=== PATIENT | female | born 1985 | race American Indian/Alaskan Native ===

== ENCOUNTER 2016-12-10 10:02 | Emergency (ER) | payer MEDICAID ==
[2016-12-10 10:34] LABS: Basophils % (Auto) 0.7 % (0.0-1.8); Hematocrit 37.9 % (30.3-42.9); Hemoglobin 12.7 gm/dl (10.1-14.3); Mean Corpuscular HGB Conc 33 % (30-34); Mean Corpuscular Hemoglobin 31 pg (28-32); Mean Corpuscular Volume 92 fl (79-97); Platelet Count 268 K/mm3 (140-440); Red Blood Count 4.13 M/mm3 (3.65-5.03); Red Cell Distribution Width 13.7 % (13.2-15.2); White Blood Count 10.3 K/mm3 (4.5-11.0)
[2016-12-10 10:37] LABS: Bilirubin,Urine NEG (Negative); Blood,Urine NEG (Negative); Ketones,Urine NEG (Negative); Leukocyte Esterase,Urine NEG (Negative); Mucus,Urine FEW /HPF; Nitrite,Urine NEG (Negative); Protein,Urine <15 mg/dL mg/dL (Negative); Urobilinogen,Urine < 2.0 mg/dL (<2.0)
[2016-12-10 10:45] LABS: Alanine Aminotransferase 18 units/L (7-56); Albumin 3.3 g/dL (3.9-5); Albumin/Globulin Ratio 0.9 %; Alkaline Phosphatase 67 units/L (35-129); Anion Gap 15 mmol/L; Bilirubin,Total 0.4 mg/dL (0.1-1.2); Blood Urea Nitrogen 4 mg/dL (7-17); Carbon Dioxide 23 mmol/L (22-30); Chloride 101.2 mmol/L (98-107); Glucose 88 mg/dL (65-100); Lipase 27 units/L (13-60); Potassium 3.8 mmol/L (3.6-5.0); Sodium 135 mmol/L (137-145); Total Protein 6.9 g/dL (6.3-8.2)
--- NOTE | 2016-12-10 14:19 | Ultrasound Report ---
ULTRASOUND OB LESS THAN 14 WEEKS - TRANSABDOMINAL AND TRANSVAGINAL INDICATION: Left-sided pelvic pain. COMPARISON: None similar at this institution. FINDINGS: Transabdominal and transvaginal pelvic sonography performed in this patient with LMP of 10/11/2016 and estimated menstrual age of 8 weeks and 4 days. It demonstrates an anteverted, gravid uterus estimated at 16.7 x 8.3 x 11 cm with a single, viable intrauterine gestation with heart rate of 161 beats per minute. Mean crown-rump length of 6.5 cm corresponds to 13 weeks and 0 days. Biparietal diameter of 1.9 cm and femur length of 1 cm correspond to 13 weeks and 0 days as well. Unremarkable included urinary bladder. Cervix appears closed and of adequate length with small intrinsic fluid. No significant pelvic free fluid. Both ovaries obscured/not visualized. CONCLUSION: 1. Single, live intrauterine gestation with an ultrasound estimated age of 13 weeks and 0 days and LENY of 06/17/2017. Please also correlate clinically for a little over 4 weeks discrepancy with the estimated menstrual age. 2. Ovaries not visualized. Thank you for the opportunity to participate in this patient's care.
--- NOTE | 2016-12-10 17:15 | Emergency Department Report ---
HPI - General Chief Complaint: Abdominal Pain Time Seen by Provider: 12/10/16 17:06 - HPI HPI: Room 17 The patient is a 31-year-old female presenting with a chief complaint of abdominal pain. The patient states for 3 days he's had pain and left lower quadrant. Patient states the pain has been intermittent. Patient denies any history of vaginal bleeding dysuria or hematuria. The patient states her last cycle occurred 10/11/2016. 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 and when she discussed with them they recommended she come to the ED for evaluation Location: [see above] Duration: [see above] Quality: Pain Severity: Moderate Modifying factors: [see above] Context: [see above] Mode of transportation: Unknown ED Past Medical Hx - Past Medical History Previous Medical History?: No - Surgical History Past Surgical History?: No - Family History Family history: no significant - Social History Smoking Status: Current Every Day Smoker (1/7 pack per day) Substance Use Type: Alcohol ED Review of Systems ROS: Stated complaint: ABDOMINAL PAIN Other details as noted in HPI Comment: All other systems reviewed and negative Constitutional: denies: chills, fever Eyes: denies: eye pain, eye discharge, vision change ENT: denies: ear pain, throat pain Respiratory: denies: cough, shortness of breath, wheezing Cardiovascular: denies: chest pain, palpitations Gastrointestinal: abdominal pain Genitourinary: abnormal menses Musculoskeletal: denies: back pain, joint swelling, arthralgia Skin: denies: rash, lesions Neurological: denies: headache, weakness, paresthesias Psychiatric: denies: anxiety, depression Hematological/Lymphatic: denies: easy bleeding, easy bruising Physical Exam - Physical Exam Vital Signs: Vital Signs 12/10/16 10:04 Temperature 98.6 F Pulse Rate 73 Respiratory 22 Rate Blood Pressure 131/80 O2 Sat by Pulse 100 Oximetry Physical Exam: GENERAL: The patient is well-developed well-nourished female lying on stretcher not appearing to be in acute distress. [] HEENT: Normocephalic. Atraumatic. Extraocular motions are intact. Patient has moist mucous membranes. NECK: Supple. Trachea midline CHEST/LUNGS: Clear to auscultation. There is no respiratory distress noted. HEART/CARDIOVASCULAR: Regular. There is no tachycardia. There is no gallop rub or murmur. ABDOMEN: Abdomen is soft, with mild left lower quadrant discomfort. There is no rebound or guarding. Patient has normal bowel sounds. There is no abdominal distention. SKIN: There is no rash. There is no edema. There is no diaphoresis. NEURO: The patient is awake, alert, and oriented. The patient is cooperative. The patient has normal speech MUSCULOSKELETAL: There is no evidence of acute injury. ED Course Vital Signs 12/10/16 10:04 Temperature 98.6 F Pulse Rate 73 Respiratory 22 Rate Blood Pressure 131/80 O2 Sat by Pulse 100 Oximetry ED Medical Decision Making - Lab Data Result diagrams: 12/10/16 10:16 12/10/16 10:16 Laboratory Tests 12/10/16 12/10/16 12/10/16 10:16 10:16 11:01 WBC 10.3 RBC 4.13 Hgb 12.7 Hct 37.9 MCV 92 MCH 31 MCHC 33 RDW 13.7 Plt Count 268 Lymph % (Auto) 23.9 Shelby % (Auto) 4.3 Eos % (Auto) 2.0 Baso % (Auto) 0.7 Lymph # 2.5 Shelby # 0.4 Eos # 0.2 Baso # 0.1 Seg Neutrophils % 69.1 Seg Neutrophils # 7.1 Sodium 135 L Carbon Dioxide 23 BUN 4 L Creatinine 0.5 L Estimated GFR > 60 BUN/Creatinine Ratio 8.00 Glucose 88 Calcium 9.0 Total Bilirubin 0.4 AST 34 ALT 18 Alkaline Phosphatase 67 Total Protein 6.9 Albumin 3.3 L Albumin/Globulin Ratio 0.9 Lipase 27 HCG, Quant 99430 H Urine Color Urine Turbidity Urine pH Ur Specific Dalton Urine Protein Urine Glucose (UA) Urine Ketones Urine Blood Urine Nitrite Urine Bilirubin Urine Urobilinogen Ur Leukocyte Esterase Urine WBC (Auto) Urine RBC (Auto) U Epithel Cells (Auto) Urine Mucus 12/10/16 Unknown WBC RBC Hgb Hct MCV MCH MCHC RDW Plt Count Lymph % (Auto) Shelby % (Auto) Eos % (Auto) Baso % (Auto) Lymph # Shelby # Eos # Baso # Seg Neutrophils % Seg Neutrophils # Sodium Carbon Dioxide BUN Creatinine Estimated GFR BUN/Creatinine Ratio Glucose Calcium Total Bilirubin AST ALT Alkaline Phosphatase Total Protein Albumin Albumin/Globulin Ratio Lipase HCG, Quant Urine Color Yellow Urine Turbidity Clear Urine pH 6.0 Ur Specific Dalton 1.012 Urine Protein <15 mg/dl Urine Glucose (UA) Neg Urine Ketones Neg Urine Blood Neg Urine Nitrite Neg Urine Bilirubin Neg Urine Urobilinogen < 2.0 Ur Leukocyte Esterase Neg Urine WBC (Auto) 2.0 Urine RBC (Auto) 3.0 U Epithel Cells (Auto) 10.0 Urine Mucus Few Potassium 3.8, chloride 101.2 - Radiology Data Radiology results: report reviewed (pelvic ultrasound), image reviewed (pelvic ultrasound) Pelvic ultrasound (read by radiologist)-single live intrauterine gestation with an ultrasound estimated age of 13 weeks and 0 days. - Differential Diagnosis , ectopic , UTI Critical care attestation.: If time is entered above; I have spent that time in minutes in the direct care of this critically ill patient, excluding procedure time. ED Disposition Clinical Impression: Disposition: DISCHARGED TO HOME OR SELFCARE Is pt being admited?: No Does the pt Need Aspirin: No Condition: Stable Instructions: (ED) Additional Instructions: Return to the emergency department immediately should you develop worsening symptoms, fever, inability to tolerate food or liquid or any other concerns. Referrals: PRIMARY CARE, [Primary Care Provider] - 3-5 Days your, BUILDING CONSTRUCTION SUPERVISOR [Other] - SETH Time of Disposition: 17:17
[2016-12-10 17:50] VITALS: BP 154/81
== END 2016-12-10 17:35 | disposition home or self-care (01) ==
LOC: ED 10:02
DX: O26.891 Other specified pregnancy related conditions, first trimester (principal); R10.32 Left lower quadrant pain; O99.330 Smoking (tobacco) complicating pregnancy, unspecified trimester; F17.200 Nicotine dependence, unspecified, uncomplicated; O02.81 Inappropriate change in quantitative human chorionic gonadotropin (hCG) in early pregnancy; Z3A.00 Weeks of gestation of pregnancy not specified
CPT/HCPCS: 36415; 76801; 76817; 80053; 81001; 83690; 84702; 85025; 99284

== ENCOUNTER 2017-06-04 14:34 | Outpatient (CLI) | payer MEDICAID ==
[2017-06-04 15:20] VITALS: BP 118/69
[2017-06-04 16:32] LABS: Basophils % (Auto) 0.4 % (0.0-1.8); Eosinophils % (Auto) 0.9 % (0.0-4.3); Hematocrit 33.4 % (30.3-42.9); Mean Corpuscular HGB Conc 33 % (30-34); Mean Corpuscular Hemoglobin 29 pg (28-32); Mean Corpuscular Volume 89 fl (79-97); Platelet Count 269 K/mm3 (140-440); Red Blood Count 3.74 M/mm3 (3.65-5.03); Red Cell Distribution Width 13.7 % (13.2-15.2); White Blood Count 11.5 K/mm3 (4.5-11.0)
[2017-06-04 16:42] LABS: INR 0.96 (0.87-1.13)
[2017-06-04 16:43] LABS: Partial Thromboplastin Time 26.9 Sec. (24.2-36.6)
--- NOTE | 2017-06-05 13:29 | Ultrasound Report ---
OB ULTRASOUND LIMITED: 06/04/17 CLINICAL: well being. Fall. FINDINGS: Gestation: Atkinson Position: Cephalic. Amniotic Fluid: Normal TRES = 14.5 cm Placenta: Posterior, fundal and left lateral. No placenta previa and no evidence of abruption. Placental Grade: 0 Heart Rate: 121 BPM IMPRESSION: Single live intrauterine fetus at 37 weeks, 5 days based on clinical dating. EDC based on clinical dating is 06/20/17. No placental abruption.
--- NOTE | 2017-06-05 13:30 | Ultrasound Report ---
BIOPHYSICAL PROFILE: 06/04/17 14:34:00 CLINICAL: Fall. Check Well Being FINDINGS: The biophysical profile was scored as followin - breathing movements 2 - movements 2 - posture and tone 2 - Qualitative amniotic fluid volume 6 - TOTAL SCORE OF POSSIBLE 8 Heart Rate (bpm) = 145 IMPRESSION: Abnormal study scored 6/8.
== END 2017-06-04 17:54 | disposition left against medical advice (07) ==
LOC: TRG 14:34 → LD 14:35 → TRG 17:54
PROVIDERS: ATTEND Obstetrics & Gynecology
DX: O99.333 Smoking (tobacco) complicating pregnancy, third trimester (principal); O47.1 False labor at or after 37 completed weeks of gestation; O26.893 Other specified pregnancy related conditions, third trimester; W19.XXXA Unspecified fall, initial encounter; Y93.89 Activity, other specified; Y92.89 Other specified places as the place of occurrence of the external cause; Y99.8 Other external cause status
CPT/HCPCS: 36415; 76815; 76819; 85025; 85379; 85610; 85730

== ENCOUNTER 2017-06-26 20:26 | Outpatient (CLI) | payer MEDICAID ==
[2017-06-26 20:42] LABS: Urine Drugs of Abuse Note Disclamer
[2017-06-26 20:53] LABS: Bacteria,Urine 3+ /HPF (Negative); Bilirubin,Urine NEG (Negative); Blood,Urine NEG (Negative); Ketones,Urine NEG (Negative); Leukocyte Esterase,Urine TR (Negative); Mucus,Urine FEW /HPF; Nitrite,Urine NEG (Negative); Protein,Urine <15 mg/dL mg/dL (Negative); Urobilinogen,Urine < 2.0 mg/dL (<2.0)
[2017-06-26 21:56] LABS: Basophils % (Auto) 0.4 % (0.0-1.8); Eosinophils % (Auto) 1.2 % (0.0-4.3); Hematocrit 33.2 % (30.3-42.9); Hemoglobin 11.4 gm/dl (10.1-14.3); Mean Corpuscular HGB Conc 34 % (30-34); Mean Corpuscular Hemoglobin 30 pg (28-32); Mean Corpuscular Volume 89 fl (79-97); Platelet Count 308 K/mm3 (140-440); Red Blood Count 3.74 M/mm3 (3.65-5.03); White Blood Count 12.2 K/mm3 (4.5-11.0)
[2017-06-26 22:59] LABS: HIV-1 Antigen p24 Non React (Non React); HIVR-1/2 Ab Non React (Non React)
--- NOTE | 2017-06-27 10:41 | Ultrasound Report ---
ULTRASOUND BIOPHYSICAL PROFILE: History: No care Technique: Transabdominal ultrasound with Doppler interrogation. 2 - breathing movements 2 - movements 2 - posture and tone 2 - Qualitative amniotic fluid volume 8 - TOTAL SCORE OF POSSIBLE 8 Heart Rate (bpm) 145
--- NOTE | 2017-06-28 08:12 | Ultrasound Report ---
OB ULTRASOUND GREATER THAN 14 WEEKS INDICATION: No care. COMPARISON: 06/04/2017 TECHNIQUE: Transabdominal grayscale ultrasound with Doppler interrogation. Gestation: Atkinson Position: Cephalic Amniotic Fluid: WNL (7-24 cm) TRES = 9.11 cm Placenta: Fundal Placental Grade: II Heart Rate: 145 BPM BPD: 9.7 cm = 39 w 4 d HC: 34.7 cm = 40 w 1 d AC: 36 cm = 40 w 0 d FL: 7.9 cm = 40 w 3 d HC/AC Ratio: 0.9 Estimated Weight: 3981 grams LMP: Uncertain US Gest. Age = 40 w 0 d EDC: 06/26/2017 CONCLUSION: Single, viable intrauterine gestation with ultrasound estimated age of 40 weeks and zero days and EDC of 06/26/2017, currently in cephalic lie with details, as above. Thank you for the opportunity to participate in this patient's care.
[2017-06-29 10:51] VITALS: BP 143/91
== END 2017-06-26 22:57 | disposition home or self-care (01) ==
LOC: TRG 20:26
PROVIDERS: ATTEND Obstetrics & Gynecology
DX: O99.333 Smoking (tobacco) complicating pregnancy, third trimester (principal); O48.0 Post-term pregnancy; O26.893 Other specified pregnancy related conditions, third trimester; R42 Dizziness and giddiness; Z3A.40 40 weeks gestation of pregnancy
CPT/HCPCS: 36415; 76816; 76819; 80307; 81001; 85025; 85660; 86592; 86706; 86762; 86803; 86850; 86900; 86901; 87806

== ENCOUNTER 2017-06-28 20:19 | Inpatient (IN) | payer MEDICAID ==
[2017-06-28] MEDS ORDERED: POLYCILLIN/NS 2 GM/100 ML 2 GM/100 ML BAG IV ONE (20:32)
[2017-06-28] MEDS ORDERED: NARCAN 0.4 MG/1 ML IV PRN (20:32)
[2017-06-28] MEDS ORDERED: CERVIDIL VG ONE (20:32)
[2017-06-28] MEDS ORDERED: XYLOCAINE 2% INFILTRATI ONE (20:32)
[2017-06-28] MEDS ORDERED: STADOL IV PRN (20:32)
[2017-06-28] MEDS ORDERED: ePHEDrine SULFATE IV PRN (20:32)
[2017-06-28] MEDS ORDERED: ZOFRAN IV PRN (20:32)
[2017-06-28] MEDS ORDERED: BRETHINE SUB-Q PRN (20:32)
[2017-06-28] MEDS ORDERED: PHENERGAN PO PRN (20:32)
[2017-06-28] MEDS ORDERED: MINERAL OIL PO PRN (20:32)
[2017-06-28] MEDS ORDERED: BRETHINE IVP PRN (20:32)
[2017-06-28] MEDS ORDERED: PITOCin/NS 20 UNIT/1000ML DRIP 20 UNITS/1,000 ML BAG IV SCH (21:00)
[2017-06-28] MEDS ORDERED: PITOCin/NS 30 UNIT/500ML 30 UNITS/500 ML BAG IV SCH ×2 (21:00)
[2017-06-28] MEDS: LACTATED RINGERS 1,000 ML IV SCH (22:18)
[2017-06-28 22:21] LABS: Hematocrit 32.7 % (30.3-42.9); Hemoglobin 11.3 gm/dl (10.1-14.3); Mean Corpuscular HGB Conc 35 % (30-34); Mean Corpuscular Hemoglobin 31 pg (28-32); Mean Corpuscular Volume 90 fl (79-97); Platelet Count 276 K/mm3 (140-440); Red Blood Count 3.64 M/mm3 (3.65-5.03); Red Cell Distribution Width 14.9 % (13.2-15.2); White Blood Count 11.3 K/mm3 (4.5-11.0)
[2017-06-29] MEDS: POLYCILLIN/NS 1 GM/50 ML 1 GM/50 ML BAG IV SCH ×3 (02:30→10:53)
[2017-06-29] MEDS ORDERED: POLYCILLIN/NS 1 GM/50 ML 1 GM/50 ML BAG ONE (02:34)
[2017-06-29] MEDS: SUBLIMAZE IV PRN ×3 (03:26→08:37)
[2017-06-29] MEDS ORDERED: HABITROL TD SCH ×2 (06:00→10:00)
[2017-06-29] MEDS: LACTATED RINGERS 1,000 ML IV SCH (06:17)
--- NOTE | 2017-06-29 08:25 | History and Physical Report ---
History of Present Illness Date of examination: 06/29/17 Date of admission: 06/28/17 20:19 History of present illness: 32 yo third trimester U/S EDC 06/17/17 at 41.5 weeks gestation presented to office 06/28/17 for initial start of care. Denies any care prior. Labs negative. GBS unknown, 3 doses of treatment received. Cervidil placed last night, 4.5-90/-2/vtx this am. Pain 8/10 currently, request epidural. Past History Past Medical History: other (morbid obesity) Past Surgical History: no surgical history Family/Genetic History: hypertension Social history: lives with family (same sex relationship), smoking (THC positive ), other (no care) - Obstetrical History Expected Date of Delivery: 06/17/17 Actual Gestation: 41 Week(s) 5 Day(s) : 3 Para: 1 Hx # Term Pregnancies: 1 (6lbs 2015) Number of Pregnancies: 0 Spontaneous Abortions: 1 Induced : 0 Number of Living Children: 1 Medications and Allergies Allergies Allergy/AdvReac Type Severity Reaction Status Date / Time No Known Allergies Allergy Unverified 12/10/16 10:09 Active Meds: Active Medications Butorphanol Tartrate (Stadol) 2 mg IV Q2H PRN PRN Reason: Pain , Severe (7-10) Fentanyl (Sublimaze) 100 mcg IV Q2H PRN PRN Reason: Labor Pain Last Admin: 06/29/17 06:38 Dose: 100 mcg Lactated Ringer's (Lactated Ringers) 1,000 mls @ 125 mls/hr IV DIRECT KADI Last Admin: 06/29/17 06:17 Dose: 125 mls/hr Oxytocin/Sodium Chloride (Pitocin/Ns 20 Unit/1000ml Drip) 20 units in 1,000 mls @ 125 mls/hr IV DIRECT KDAI Oxytocin/Sodium Chloride (Pitocin/Ns 30 Unit/500ml) 30 units in 500 mls @ 1 mls /hr IV TITR KADI; 1 MILLIUNITS/MIN PRN Reason: Protocol Oxytocin/Sodium Chloride (Pitocin/Ns 30 Unit/500ml) 30 units in 500 mls @ 0 mls /hr IV TITR KADI; As Directed PRN Reason: Protocol Ampicillin Sodium (Polycillin/Ns 1 Gm/50 Ml) 1 gm in 50 mls @ 100 mls/hr IV Q4HR KADI PRN Reason: Protocol Last Admin: 06/29/17 06:17 Dose: 100 mls/hr Influenza Virus Vaccine Quadrival (Fluarix Quad [id number](36 Mos+)) 0.5 ml IM .ONCE ONE Stop: 06/29/17 12:01 Mineral Oil (Mineral Oil) 30 ml PO QHS PRN PRN Reason: Constipation Naloxone HCl (Narcan 0.4 Mg/1 Ml) 0.1 mg IV Q2MIN PRN PRN Reason: Res Rate </= 8 or 02 SAT < 92% Nicotine (Habitrol) 14 mg TD QDAY KADI Ondansetron HCl (Zofran) 4 mg IV Q8H PRN PRN Reason: Nausea And Vomiting Promethazine HCl (Phenergan) 25 mg PO Q6H PRN PRN Reason: Nausea And Vomiting Review of Systems All systems: negative Gastrointestinal: abdominal pain Genitourinary: normal appearance, leakage of fluid, contractions, no vaginal bleeding, no genital sores - Vital Signs Vital signs: Vital Signs Pulse BP Pulse Ox 104 H 138/86 99 06/28/17 21:00 06/28/17 21:00 06/28/17 21:00 Temp Pulse Resp BP Pulse Ox 96.5 F L 97 H 16 127/69 100 06/29/17 07:35 06/29/17 08:19 06/29/17 07:35 06/29/17 08:19 06/29/17 08:18 - Physical Exam Breasts: Cardiovascular: Regular rate Abdomen: Positive: normal appearance, soft, normal bowel sounds. Negative: distention, tenderness Vulva: both: normal Vagina: Positive: normal moisture. Negative: discharge Cervix: Negative: lesion, discharge Uterus: Positive: normal size, normal contour Adnexa: both: normal Anus/Rectum: Positive: normal perianal skin, heme negative. Negative: rectal mass, hemorrhoids Extremities: Deep Tendon Reflex Grade: Normal +2 - Obstetrical FHR: category 1 Uterine Contraction Monitor Mode: External Cervical Dilatation: 4.5 Cervical Effacement Percentage: 60 station: -2 Uterine Contraction Frequency (min): 2-3 Uterine Contraction Duration: 60 Uterine Contraction Pattern: Regular Uterine Contraction Intensity: Strong/Firm Results Result Diagrams: 06/28/17 21:55 Abnormal lab results 06/28/17 Range/Units 21:55 WBC 11.3 H (4.5-11.0) K/mm3 RBC 3.64 L (3.65-5.03) M/mm3 MCHC 35 H (30-34) % All other labs normal. Assessment and Plan O: VSS AF FBS: 77 A: IUP at 41.5 weeks gestation No Care Unknown GBS Status-Adequate Treatment Morbid Obesity Positive THC P: Amniotomy-clear fluid Analgesia/Anesthesia prn Anticipate
[2017-06-29] MEDS ORDERED: ePHEDrine SULFATE ONE (09:26)
--- NOTE | 2017-06-29 09:50 | Anesthesia Consultation ---
Anesthesia Consult and Med Hx Date of service: 06/29/17 - Airway Anesthetic Teeth Evaluation: Good ROM Head & Neck: Adequate Mental/Hyoid Distance: Adequate Mallampati Class: Class II Intubation Access Assessment: Probably Good - Pre-Operative Health Status ASA Pre-Surgery Classification: ASA3 Proposed Anesthetic Plan: Epidural, Spinal - Pulmonary Hx Smoking: Yes Hx Asthma: No COPD: No Hx Pneumonia: No - Cardiovascular System Hx Hypertension: No - Central Nervous System Hx Seizures: No Hx Psychiatric Problems: No - Endocrine Hx Renal Disease: No Hx End Stage Renal Disease: No Hx Hypothyroidism: No Hx Hyperthyroidism: No - Hematic Hx Sickle Cell Disease: No - Other Systems Hx Alcohol Use: No Hx Obesity: Yes (BMI 58.4)
[2017-06-29] MEDS ORDERED: NARCAN 2 MG/2 ML IV PRN (10:30)
[2017-06-29] MEDS ORDERED: ePHEDrine SULFATE IV PRN (10:30)
[2017-06-29] MEDS ORDERED: fentaNYL-BUPIV 2 MCG/ML-0.125% 200 MCG/100 ML BAG EPIDURAL SCH (10:30)
--- NOTE | 2017-06-29 11:49 | Procedure Note ---
OB Delivery Note - Delivery Date of Delivery: 06/29/17 (8-11oz male @ 1126) Surgeon: FABIANA ABBASI Estimated blood loss: 300cc - Vaginal Delivery presentation: vertex Delivery position: OA Intrapartum events: no care Delivery induction: cervidil Delivery augmentation: rupture of membranes, pitocin Delivery monitor: external FHT, external uterine Route of delivery: Delivery placenta: spontaneous Delivery cord: 3 umbilical vessels Episiotomy: none Delivery laceration: 1st degree (1st degree vaginal laceration, approximated with one 3.0 Vicryl stitch) Anesthesia: epidural - Infant A at 1 minute: 8 at 5 minutes: 9 Infant Gender: Male (Rapidly to complete. Head delivered spontaneous without pushing. Pushed for delivery of head with one push. Spont. lusty cry. Infant dried and placed skin to skin. Spont. placenta. Pitocin infusing, bleeding moderate. Fundus messaged firm and clots expressed. Bleeding minimal. FF 3 below U, ML. Laceration repaired as noted. Unknown GBS 3 doses of abx.)
[2017-06-29] MEDS ORDERED: DULCOLAX PR PRN (11:50)
[2017-06-29] MEDS ORDERED: BENADRYL PO PRN (11:50)
[2017-06-29] MEDS ORDERED: MILK OF MAGNESIA PO PRN (11:50)
[2017-06-29] MEDS ORDERED: PHENERGAN PO PRN (11:50)
[2017-06-29] MEDS ORDERED: TYLENOL PO PRN (11:50)
[2017-06-29] MEDS ORDERED: TUCKS PAD TP PRN (11:50)
[2017-06-29] MEDS ORDERED: LANSINOH TP PRN (11:50)
[2017-06-29] MEDS ORDERED: SODIUM CHLORIDE FLUSH SYRINGE 10 ML IV NR (12:00)
[2017-06-29] MEDS ORDERED: Fluarix Quad 2017-2018(36 MOS+) IM ONE (12:00)
[2017-06-29] MEDS: MOTRIN PO SCH ×3 (14:48→23:50)
[2017-06-29] MEDS: NORCO 5/325 PO PRN (17:10)
[2017-06-29 23:36] LABS: Hematocrit 31.8 % (30.3-42.9); Hemoglobin 10.5 gm/dl (10.1-14.3)
[2017-06-30] MEDS: MOTRIN PO SCH ×3 (05:37→21:02)
--- NOTE | 2017-06-30 10:01 | Progress Note ---
Assessment and Plan A: PPD#1 s/p , Morbid Obesity, No Care, + UDS P: Routine care. Discharge at 48 hrs. Subjective - Subjective Date of service: 06/30/17 Principal diagnosis: IUP at term delivered, no care, + UDS, Morbid Obesity Interval history: Pt without complaints. Pt desires to go home as soon as possible. Patient reports: appetite normal, voiding normally, pain well controlled, ambulating normally : doing well Objective - Vital Signs Latest vital signs: Vital Signs Temp Pulse Resp BP BP Pulse Ox 06/30/17 07:53 97.6 F 77 18 111/58 06/30/17 06:37 16 06/30/17 05:37 16 06/30/17 00:50 16 06/30/17 00:00 98.7 F 73 20 132/72 06/29/17 23:50 18 06/29/17 20:30 98.2 F 87 20 133/76 06/29/17 17:12 98.1 F 70 18 110/63 95 06/29/17 13:40 98.8 F 74 20 131/75 06/29/17 12:56 80 169/79 06/29/17 12:33 84 100 06/29/17 12:28 86 100 06/29/17 12:25 77 140/81 06/29/17 12:23 77 100 06/29/17 12:18 86 100 06/29/17 12:13 79 99 06/29/17 12:08 77 100 06/29/17 12:03 81 99 06/29/17 11:58 76 100 06/29/17 11:55 74 153/80 06/29/17 11:53 76 100 06/29/17 11:48 79 100 06/29/17 11:43 74 100 06/29/17 11:38 67 99 06/29/17 11:33 70 100 06/29/17 11:28 72 100 06/29/17 11:23 74 100 06/29/17 11:18 82 100 06/29/17 11:13 81 100 06/29/17 11:09 67 126/69 06/29/17 11:08 72 100 Intake and Output 06/29/17 06/30/17 06/30/17 22:59 06:59 14:59 Intake Total 720 240 Output Total 1 1 Balance 719 239 Intake: Oral 720 240 Output: Urine 1 1 Void 1 1 Other: Total, Intake Amount 240 240 Total, Output Amount 1 1 # Voids Void 1 1 - Exam Breasts: Present: deferred Cardiovascular: Present: Regular rate Lungs: Present: Clear to auscultation Abdomen: Present: soft (obese) Uterus: Present: fundal height at umbilicus Extremities: Present: normal
--- NOTE | 2017-06-30 10:02 | Discharge Summary ---
Providers - Providers Date of Admission: 06/28/17 20:19 Date of discharge: 07/01/17 Attending physician: KEATON LANDRY MD 06/29/17 17:58 Consult to Case Management [CONS] Routine Services Needed at Discharge: Debt And Budget Counselor Notified:: no Was contact made?: No Additional Physician Instructions: pos. UDS Primary care physician: KEATON LANDRY MD Hospitalization Reason for admission: induction of labor Delivery: Procedure details: Please see delivery note. Episiotomy: none Laceration: 1st degree Other procedures: none complications: none Discharge diagnosis: IUP at term delivered baby: male Hospital course: Patient underwent a vaginal delivery which she tolerated well. Her course was uncomplicated and she was discharged on day #2. She'll be discharged with follow-up in 4 wks at [facility]. Condition at discharge: Stable Disposition: DC- TO HOME OR SELFCARE - Discharge Diagnoses (1) No care in current Status: Acute Qualifiers: Trimester: T (2) Morbid obesity Status: Acute (3) Positive urine drug screen Status: Acute (4) Anemia Status: Acute Qualifiers: Anemia type: A Iron deficiency anemia type: unspecified iron deficiency Vitamin B12 deficiency anemia type: V Folate deficiency anemia type: F Bone marrow failure anemia type: B Hemolytic anemia type: H Other causes of anemia: O Chronic kidney disease stage: C Qualified Code(s): D50.9 - Iron deficiency anemia, unspecified Plan - Discharge Medications Prescriptions: Ibuprofen [Motrin] 800 mg PO Q8HR PRN #30 tablet PRN Reason: Pain oxyCODONE /ACETAMINOPHEN [Percocet 5/325] 1 tab PO Q6HR PRN #20 tablet PRN Reason: Pain - Provider Discharge Summary Activity: routine, no sex for 6 weeks, no heavy lifting 4 weeks, no strenuous exercise Diet: routine Instructions: routine Additional instructions: [] Smoking cessation referral if applicable(refer to patient education folder for contact #) [] Refer to [facility] Booklet Call your doctor immediately for: * Fever > 100.5 * Heavy vaginal bleeding ( >1 pad per hour) * Severe persistent headache * Shortness of breath * Reddened, hot, painful area to leg or breast * Drainage or odor from incision. * Keep incision clean and dry at all times and follow doctor's instructions regarding bathing/showering - Follow up plan Follow up: MAL JONES MD [Staff Physician] - 07/27/17 ( exam )
--- NOTE | 2017-06-30 14:40 | Progress Note ---
Subjective Date of service: 06/30/17 Principal diagnosis: IUP at term delivered, no care, + UDS, Morbid Obesity Interval history: Post day 1, satisfied with anesthesia, comfortable, and has been ambulating. Objective - Constitutional Vitals: Vital Signs - 12hr 06/30/17 06/30/17 06/30/17 05:37 06:37 07:53 Temperature 97.6 F Pulse Rate 77 Respiratory 16 16 18 Rate Blood Pressure 111/58 [Left] - Labs CBC & Chem 7: 06/29/17 23:19
[2017-06-30] MEDS: PRENATAL VITAMIN PO SCH (17:00)
[2017-07-01] MEDS: MOTRIN PO SCH (04:05)
[2017-07-01] MEDS ORDERED: BOOSTRIX IM ONE (06:05)
[2017-07-01] MEDS: NORCO 5/325 PO PRN (09:35)
[2017-07-01] MEDS: PRENATAL VITAMIN PO SCH (09:36)
[2017-07-01 11:40] VITALS: BP 99/68
== END 2017-07-01 12:45 | disposition home or self-care (01) | DRG 775 ==
LOC: LD 20:19 → OB 06-29 13:57
PROVIDERS: ADMIT Obstetrics & Gynecology; ATTEND Obstetrics & Gynecology
PROC: 10E0XZZ Delivery of Products of Conception, External Approach (ICD-10-PCS; principal; 2017-06-29)
PROC: 3E0234Z Introduction of Serum, Toxoid and Vaccine into Muscle, Percutaneous Approach (ICD-10-PCS; 2017-06-29)
PROC: 3E0P7VZ Introduction of Hormone into Female Reproductive, Via Natural or Artificial Opening (ICD-10-PCS; 2017-06-29)
PROC: 3E0R3BZ Introduction of Anesthetic Agent into Spinal Canal, Percutaneous Approach (ICD-10-PCS; 2017-06-29)
PROC: 00HU33Z Insertion of Infusion Device into Spinal Canal, Percutaneous Approach (ICD-10-PCS; 2017-06-29)
PROC: 0HQ9XZZ Repair Perineum Skin, External Approach (ICD-10-PCS; 2017-06-29)
DX: O99.214 Obesity complicating childbirth (principal); Z68.43 Body mass index [BMI] 50.0-59.9, adult; O99.324 Drug use complicating childbirth; Z37.0 Single live birth; E66.01 Morbid (severe) obesity due to excess calories; Z23 Encounter for immunization; F12.10 Cannabis abuse, uncomplicated; Z3A.41 41 weeks gestation of pregnancy; Z87.891 Personal history of nicotine dependence; O70.0 First degree perineal laceration during delivery; O90.81 Anemia of the puerperium; D50.9 Iron deficiency anemia, unspecified
CPT/HCPCS: 36415; 82962; 85014; 85018; 85027; 86592; 86850; 86900; 86901; 87591; 90686; 90715; J0290; J2590; J3010; J7120

== ENCOUNTER 2020-08-03 21:53 | Emergency (ER) | payer MEDICAID ==
[2020-08-03] MEDS ORDERED: ASPIRIN 325 MG TAB PO ONE (23:29)
[2020-08-04 00:13] LABS: Basophils # (Auto) 0.2 K/mm3 (0.0-0.1); Basophils % (Auto) 2.3 % (0.0-1.8); Eosinophils # (Auto) 0.3 K/mm3 (0.0-0.4); Eosinophils % (Auto) 3.3 % (0.0-4.3); Hematocrit 38.9 % (30.3-42.9); Hemoglobin 13.7 gm/dl (10.1-14.3); Lymphocytes # (Auto) 3.2 K/mm3 (1.2-5.4); Lymphocytes % (Auto) 37.2 % (13.4-35.0); Mean Corpuscular HGB Conc 35 % (30-34); Mean Corpuscular Volume 93 fl (79-97); Monocytes # (Auto) 0.5 K/mm3 (0.0-0.8); Monocytes % (Auto) 5.4 % (0.0-7.3); Platelet Count 238 K/mm3 (140-440); Red Blood Count 4.17 M/mm3 (3.65-5.03); Red Cell Distribution Width 13.9 % (13.2-15.2)
[2020-08-04 00:25] LABS: BUN/Creatinine Ratio 8; Blood Urea Nitrogen 6 mg/dL (7-17); Calcium 8.7 mg/dL (8.4-10.2); Hemolysis Index 50
--- NOTE | 2020-08-04 01:02 | XRay Report ---
CHEST 1 VIEW INDICATION: Chest Pain. COMPARISON: None FINDINGS: SUPPORT DEVICES: None. HEART: Within normal limits. LUNGS/PLEURA: No acute air space or interstitial disease. ADDITIONAL FINDINGS: None. IMPRESSION: 1. No acute findings. Signer Name: Elmer Skaggs MD Signed: 08/04/2020 12:58 AM Workstation Name: [id number]
[2020-08-04 07:21] VITALS: BP 157/122
[2020-08-04] MEDS ORDERED: ASPIRIN 325 MG TAB ONE (08:49)
--- NOTE | 2020-08-04 09:05 | Emergency Department Report ---
HPI - General Chief Complaint: Chest Pain Time Seen by Provider: 08/04/20 08:51 - HPI HPI: Room 5 Patient is a 35-year-old female present with a chief complaint of chest pain. The patient states her symptoms began last night at 19:00 while she was angry with a sharp intermittent substernal chest pain. Patient states her chest pain is associated with shortness of breath and nausea without vomiting. Patient denies diaphoresis. Patient denies history of fever. Patient currently denies chest pain. Patient states she is never had a stress test or cardiac catheterization ED Past Medical Hx - Past Medical History Previous Medical History?: Yes Additional medical history: Morbid Obesity - Surgical History Past Surgical History?: No - Family History Family history: no significant - Social History Smoking Status: Current Every Day Smoker (1/2 pack/day) Substance Use Type: Alcohol (Occasional), Marijuana - Medications Home Medications: Home Medications Medication Instructions Recorded Confirmed Last Taken Type Ibuprofen [Motrin] 800 mg PO Q8HR PRN #30 tablet 06/30/17 Unknown Rx oxyCODONE /ACETAMINOPHEN [Percocet 1 tab PO Q6HR PRN #20 tablet 06/30/17 U nknown Rx 5/325] ED Review of Systems ROS: Stated complaint: CHES PAIN Other details as noted in HPI Constitutional: denies: diaphoresis Eyes: denies: eye pain ENT: denies: throat pain Respiratory: shortness of breath Cardiovascular: chest pain Endocrine: no symptoms reported Gastrointestinal: nausea. denies: vomiting Genitourinary: denies: dysuria Musculoskeletal: denies: back pain Neurological: denies: headache Physical Exam - Physical Exam Vital Signs: Vital Signs 08/03/20 08/04/20 23:26 07:21 Temperature 98.1 F Pulse Rate 74 88 Respiratory 18 18 Rate Blood Pressure 174/109 Blood Pressure 157/122 [Right] O2 Sat by Pulse 100 100 Oximetry Physical Exam: GENERAL: The patient is well-developed well-nourished []. [] HEENT: Normocephalic. Atraumatic. Extraocular motions are intact. Patient has moist mucous membranes. NECK: Supple. Trachea midline CHEST/LUNGS: Clear to auscultation. There is no respiratory distress noted. HEART/CARDIOVASCULAR: Regular. There is no tachycardia. There is no gallop rub or murmur. ABDOMEN: Abdomen is soft, nontender. Patient has normal bowel sounds. There is no abdominal distention. SKIN: There is no rash. There is no edema. There is no diaphoresis. NEURO: The patient is awake, alert, and oriented. The patient is cooperative. The patient has normal speech MUSCULOSKELETAL: There is no evidence of acute injury. ED Course Vital Signs 08/03/20 08/04/20 23:26 07:21 Temperature 98.1 F Pulse Rate 74 88 Respiratory 18 18 Rate Blood Pressure 174/109 Blood Pressure 157/122 [Right] O2 Sat by Pulse 100 100 Oximetry ED Medical Decision Making - Lab Data Result diagrams: 08/03/20 23:39 08/03/20 23:39 - EKG Data -: EKG Interpreted by Me EKG shows normal: sinus rhythm Rate: normal - EKG Data When compared to previous EKG there are: previous EKG unavailable Interpretation: other (No ischemic changes seen) - Radiology Data Radiology results: report reviewed (Chest x-ray), image reviewed (Chest x-ray) interpreted by me: Chest x-ray-no focal infiltrates, no pneumothorax, no foreign body seen [address] [address] XRay Report Signed Patient: INDIRA DESOUZA MR#: [id number] : 1985 Acct:[id number] Age/Sex: 35 / F ADM Date: 08/03/20 Loc: ED Attending Dr: Ordering Physician: ED MD MARIA GUADALUPE Date of Service: 08/03/20 Procedure(s): XR chest 1V ap Accession Number(s): [id number] cc: ED MD MARIA GUADALUPE Fluoro Time In Minutes: CHEST 1 VIEW INDICATION: Chest Pain. COMPARISON: None FINDINGS: SUPPORT DEVICES: None. HEART: Within normal limits. LUNGS/PLEURA: No acute air space or interstitial disease. ADDITIONAL FINDINGS: None. IMPRESSION: 1. No acute findings. Signer Name: Elmer Skaggs MD Signed: 08/04/2020 12:58 AM Workstation Name: [id number] Transcribed By: JW Dictated By: Elmer Skaggs MD Electronically Authenticated By: Elmer Skaggs MD Signed Date/Time: 08/04/2057 DD/ TD/TT: - Medical Decision Making The patient states she is unable to stay in the hospital as she has 2 younger children that someone is watching for her since she has been in the emergency department and she must get back to them. Patient verbalized understanding of increased morbidity and/or mortality should she leave the hospital AGAINST MEDICAL ADVICE. - Differential Diagnosis ACS, pericarditis, GERD Critical care attestation.: If time is entered above; I have spent that time in minutes in the direct care of this critically ill patient, excluding procedure time. ED Disposition Clinical Impression: Chest pain Disposition: LEFT AGAINST MED ADVICE Is pt being admited?: No Does the pt Need Aspirin: Yes Condition: Undetermined Instructions: Chest Pain (ED) Referrals: ADRIANA VELEZ [Primary Care Provider] - 3-[address] [facility] [Provider Group] - 3-5 Days LAURA CHESTER MD [Staff Physician] - 3-5 Days (Dr. Saldaña is a cuff setter overlock. Please follow-up with him for further evaluate) Time of Disposition: 09:09 (Patient leaving AMA)
== END 2020-08-04 09:20 | disposition left against medical advice (07) ==
LOC: ED 21:53
DX: R07.89 Other chest pain (principal); R06.02 Shortness of breath; R11.0 Nausea; F17.200 Nicotine dependence, unspecified, uncomplicated; F12.10 Cannabis abuse, uncomplicated; Z79.1 Long term (current) use of non-steroidal anti-inflammatories (NSAID); Z79.899 Other long term (current) drug therapy
CPT/HCPCS: 36415; 71045; 80048; 84484; 84703; 85025; 93005